=== PATIENT | female | born 1960 | race Hispanic/Latino ===

== ENCOUNTER 2017-06-25 11:56 | Emergency (ER) | payer MEDICAID, OTHER ==
[2017-06-25] MEDS ORDERED: Thiamine 100 mg/ml Inj IV ONE (13:03)
--- NOTE | 2017-06-25 13:29 | C.PDOC ---
History Of Present Illness 57 year old female with Hx of alcohol abuse here for detox. Patient states her last use was this morning. Patient denies any SI/HI, hallucinations, other physical complaints. Patient feels anxious she states. Time Seen by Provider: 06/25/17 12:37 Chief Complaint (Nursing): Substance Abuse History Per: Patient History/Exam Limitations: no limitations Onset/Duration Of Symptoms: Days Current Symptoms Are (Timing): Gone Suicide/Self Injury Attempted (Context): None Modifying Factor(s): Alcohol Associated Symptoms: Anxiety. denies: Depression, Suicidal Thoughts, Suicidal Plan Recent travel outside of the [place]: No Additional History Per: Patient Past Medical History Reviewed: Historical Data, Nursing Documentation, Vital Signs Vital Signs: Last Vital Signs Temp 98.0 F 06/25/17 13:33 Pulse 99 H 06/25/17 13:33 Resp 18 06/25/17 13:33 BP 116/78 06/25/17 13:33 Pulse Ox 99 06/25/17 13:35 - Medical History PMH: Anxiety, Crohn's Disease, Depression Denies: Diabetes, Hepatitis, HIV, HTN, Chronic Kidney Disease, Seizures, Sexually Transmitted Disease Surgical History: No Surg Hx - [facility] Procedures INDIVID PSYCHOTHERAP NEC (03/30/14) OTHER GROUP THERAPY (03/30/14) Family History: States: Unknown Family Hx - Social History Hx Tobacco Use: Yes Hx Alcohol Use: Yes Hx Substance Use: No - Immunization History Hx Tetanus Toxoid Vaccination: No Hx Influenza Vaccination: No Hx Pneumococcal Vaccination: No Review Of Systems Constitutional: Negative for: Fever, Chills Cardiovascular: Negative for: Chest Pain, Palpitations Respiratory: Negative for: Shortness of Breath Gastrointestinal: Negative for: Nausea, Vomiting, Abdominal Pain Skin: Negative for: Rash Neurological: Negative for: Weakness, Numbness Psych: Positive for: Anxiety. Negative for: Depression, Suicidal ideation Physical Exam - Physical Exam Appears: Non-toxic, No Acute Distress Skin: Normal Color, Warm, Dry Head: Atraumatic, Normacephalic Eye(s): bilateral: Normal Inspection Nose: No Discharge Oral Mucosa: Moist Neck: Normal ROM, Supple Chest: Symmetrical Cardiovascular: Rhythm Regular, No Murmur Respiratory: Normal Breath Sounds, No Rales, No Rhonchi, No Wheezing Gastrointestinal/Abdominal: Soft, No Tenderness, No Guarding, No Rebound Extremity: Normal ROM, No Pedal Edema, No Calf Tenderness, No Deformity, No Swelling Neurological/Psych: Oriented x3, Normal Speech, Normal Cognition Gait: Steady ED Course And Treatment O2 Sat by Pulse Oximetry: 99 (On RA) Pulse Ox Interpretation: Normal Medical Decision Making Medical Decision Making: Impression : ETOH intoxication Plan: * Labs * UA * Ativan 0.5 mg IM * Vitamin B1 100 mg IV * Librium 25 mg PO Patient states that she no longer want detox at this time. Patient is not intoxicated right now and with no SI/HI. Patient is ambulatory with steady gait and will be d/c home with ETOH abuse. Disposition - Disposition Referrals: [facility] [Outside] Disposition: HOME/ ROUTINE Disposition Time: 13:35 Condition: STABLE Additional Instructions: you do not wish to be seen in hospital follow up with your doctor or medical clinic in 2 days call to make an appointment return to hospital if symptoms worsens or progress Instructions: Abuse of Alcohol (ED) Forms: General Discharge Instructions, [facility] ([place]) - Clinical Impression Clinical Impression: Alcohol abuse - Scribe Statement The provider has reviewed the documentation as recorded by the Scribe Eddi Weber All medical record entries made by the Scribe were at my direction and personally dictated by me. I have reviewed the chart and agree that the record accurately reflects my personal performance of the history, physical exam, medical decision making, and the department course for this patient. I have also personally directed, reviewed, and agree with the discharge instructions and disposition.
[2017-06-25 13:34] VITALS: BP 116/78; PULSE 99; RESP 18; TEMP 98
[2017-06-25 13:35] VITALS: O2SAT 99
== END 2017-06-25 13:33 | disposition home or self-care (01) ==
LOC: C.ER 11:56
DX: F10.10 Alcohol abuse, uncomplicated (principal); Y90.9 Presence of alcohol in blood, level not specified

== ENCOUNTER 2017-06-25 20:48 | Emergency (ER) | payer MEDICAID ==
[2017-06-25 21:01] VITALS: BP 126/96; PULSE 106; RESP 20; TEMP 97.5; O2SAT 98
--- NOTE | 2017-06-25 23:09 | C.PDOC ---
Time Seen by Provider: 06/25/17 23:07 Chief Complaint (Nursing): Female Genitourinary Past Medical History Vital Signs: Last Vital Signs Temp 97.5 F L 06/25/17 20:53 Pulse 106 H 06/25/17 20:53 Resp 20 06/25/17 20:53 BP 126/96 H 06/25/17 20:53 Pulse Ox 98 06/25/17 20:53 - Medical History PMH: Anxiety, Crohn's Disease, Depression Denies: Diabetes, Hepatitis, HIV, HTN, Chronic Kidney Disease, Seizures, Sexually Transmitted Disease - [facility] Procedures INDIVID PSYCHOTHERAP NEC (03/30/14) OTHER GROUP THERAPY (03/30/14) Family History: States: Unknown Family Hx - Social History Hx Tobacco Use: Yes Hx Alcohol Use: Yes Hx Substance Use: No - Immunization History Hx Tetanus Toxoid Vaccination: No Hx Influenza Vaccination: No Hx Pneumococcal Vaccination: No ED Course And Treatment O2 Sat by Pulse Oximetry: 98 Medical Decision Making Medical Decision Making: NO vaginal bleeding- pt incontinent of stool and urine only. No detox beds available. Seen earlier today for same but left "because there are no TV's" stable gait can get home safely. Disposition Doctor Will See Patient In The: Office Counseled Patient/Family Regarding: Studies Performed, Diagnosis - Disposition Disposition: HOME/ ROUTINE Disposition Time: 23:09 Condition: GOOD - Clinical Impression Clinical Impression: Alcohol abuse
== END 2017-06-25 23:46 | disposition home or self-care (01) ==
LOC: C.ER 20:48
DX: F10.10 Alcohol abuse, uncomplicated (principal); Y90.9 Presence of alcohol in blood, level not specified